=== PATIENT | female | born 1980 | race Caucasian/White ===

== ENCOUNTER → 2024-08-05 | Outpatient (CLI) | payer OTHER ==
[2024-08-06 05:08] LABS: VARICELLA ZOSTER IGG AB TITER Reactive (Non Reactive)
[2024-08-06 07:07] LABS: MUMPS VIRUS IGG ANTIBODY 90.4 AU/mL (Immune >10.9); RUBELLA AB IGG-REFLAB 8.14 index (Immune >0.99); RUBEOLA (MEASLES) IGG 23.1 AU/mL (Immune >16.4)
[2024-08-08 11:06] LABS: QUANTIFERON+, Nil Value 0.02 IU/mL; QUANTIFERON+,Mitogen Value >10.00 IU/mL; QUANTIFERON+,TB1 Antigen Value 0.09 IU/mL; QUANTIFERON+,TB2 Antigen Value 0.05 IU/mL; QUANTIFERON, TB GOLD PLUS Negative (Negative)
== END | disposition home or self-care (01) ==
LOC: LABMN 14:28
PROVIDERS: ATTEND Family Medicine
DX: Z11.3 Encounter for screening for infections with a predominantly sexual mode of transmission (principal); Z02.89 Encounter for other administrative examinations; Z20.828 Contact with and (suspected) exposure to other viral communicable diseases; Z20.1 Contact with and (suspected) exposure to tuberculosis
CPT/HCPCS: 86480; 86592; 86706; 86735; 86762; 86765; 86787; 87340; 87491; 87591